=== PATIENT | female | born 1950 | race Caucasian/White ===

== ENCOUNTER 2025-03-24 13:01 | Inpatient (IN) | payer MEDICARE, OTHER ==
[~2025-03-24] VITALS: Ht 154.9 cm; Wt 53.3 kg
[2025-03-24] MEDS: IV NORMAL SALINE 1000 ML BAG IV ONE (13:15)
[2025-03-24 13:35] LABS: BASOPHILS % (AUTO) 0.6 % (0.0-2.0); DIFFERENTIAL COMMENT 1; EOSINOPHILS # (AUTO) 0.1 K/uL (0.0-0.7); EOSINOPHILS % (AUTO) 0.7 % (0.0-7.0); HEMATOCRIT 26.2 % (31.2-41.9); HEMOGLOBIN 8.8 g/dL (10.9-14.3); LYMPHOCYTES # (AUTO) 0.5 K/uL (0.8-4.8); LYMPHOCYTES % (AUTO) 6.7 % (20.5-51.5); MEAN CORPUSCULAR HEMOGLOBIN 32.7 uug (24.7-32.8); MEAN CORPUSCULAR HGB CONC 34 g/dL (32.3-35.6); MEAN CORPUSCULAR VOLUME 97.4 fL (75.5-95.3); MONOCYTES # (AUTO) 0.4 K/uL (0.1-1.30); MONOCYTES % (AUTO) 5.3 % (0.0-11.0); NEUTROPHILS # (AUTO) 7.1 K/uL (1.8-8.9); NEUTROPHILS % (AUTO) 86.7 % (38.5-71.5); PLATELET COUNT (AUTO) 345 K/uL (179-408); RED BLOOD CELL COUNT(AUTO) 2.69 MIL/uL (3.63-4.92); RED CELL DISTRIBUTION WIDTH 13.3 % (12.3-17.7); WHITE BLOOD COUNT (AUTO) 8.2 K/uL (3.8-11.8)
[2025-03-24 13:45] LABS: CALCIUM 10.9 mg/dL (8.5-10.1); CARBON DIOXIDE 30 mmol/L (21-32); CHLORIDE 99 mmol/L (98-107); GLUCOSE 149 mg/dL (74-106); POTASSIUM 3.6 mmol/L (3.5-5.1); SODIUM SERUM 140 mmol/L (136-145)
[2025-03-24 13:47] LABS: UREA NITROGEN, BLOOD 142 mg/dL (7-18)
[2025-03-24] MEDS ORDERED: CARB1TAB21 PO (14:06)
[2025-03-24] MEDS ORDERED: FELO10TA44 PO (14:06)
[2025-03-24] MEDS ORDERED: ATOR80TA PO (14:06)
[2025-03-24] MEDS ORDERED: PARO20TA7 PO (14:06)
[2025-03-24] MEDS ORDERED: BUSP7.5T7 PO (14:06)
[2025-03-24 14:11] LABS: MAGNESIUM 2.9 mg/dL (1.8-2.4); PHOSPHOROUS 4.1 mg/dL (2.5-4.9)
[2025-03-24] MEDS ORDERED: LEVE500T9 PO (14:13)
[2025-03-24] MEDS ORDERED: CALC0.253 PO (14:13)
[2025-03-24] MEDS ORDERED: FERR-68 PO (14:13)
[2025-03-24] MEDS ORDERED: INSU100V7 SQ (14:13)
[2025-03-24] MEDS ORDERED: SODI650T PO (14:13)
[2025-03-24] MEDS ORDERED: HYDR-4077 PO (14:13)
[2025-03-24] MEDS ORDERED: CYAN500T9 PO (14:13)
[2025-03-24] MEDS ORDERED: FURO80TA3 PO (14:13)
[2025-03-24] MEDS ORDERED: REMEDY ESSENTIAL ZINC PASTE 113 GM TP PRN (16:15)
[2025-03-24] MEDS ORDERED: ONDANSETRON 4 MG/2 ML VIAL IV PRN (16:15)
[2025-03-24] MEDS ORDERED: DEXTROSE 50% 50 ML DISP.SYRIN IV PRN (16:45)
[2025-03-24 18:26] LABS: *BILIRUBIN,URIN NEGATIVE (NEGATIVE); *BLOOD, URINE NEGATIVE (NEGATIVE); *CLARITY,URINE CLEAR (CLEAR); *COLOR,URINE YELLOW (YELLOW); *KETONES,URINE NEGATIVE (NEGATIVE); *PROTEIN,URINE 2+ (NEGATIVE); *UROBILINOGEN,URINE 0.2 E.U./dl (NORMAL); LEUKOCYTE ESTERASE ,URINE NEGATIVE (NEGATIVE); NITRITE, URINE NEGATIVE (NEGATIVE); PH,URINE 6.5 (5.0-8.0); UGLUCOSE NEGATIVE (NEGATIVE)
[2025-03-24 18:35] LABS: *CREATININE,URINE 43.6 mg/dL (30-125)
[2025-03-24 18:58] LABS: BACTERIA,URINE FEW /HPF (NONE SEEN); RBC,URINE NONE SEEN /HPF (0-3); SQUAMOUS EPITHELIAL CELL,UR MANY /HPF (NONE SEEN); WBC,URINE 0-3 /HPF (0-3)
[2025-03-24 19:45] VITALS: BP 123/59; TEMP 98; O2SAT 97
[2025-03-24] MEDS: IV NS 1000 ML 1,000 ML IV PRN (19:51)
[2025-03-24] MEDS: levETIRAcetam 500 MG TABLET PO SCH (20:13)
[2025-03-24] MEDS: CARBIDOPA/LEVODOPA 25-100MG TABLET PO SCH (20:13)
[2025-03-24] MEDS: hydrALAZINE HCL 50 MG TABLET PO SCH (20:14)
[2025-03-24] MEDS: HEPARIN SODIUM,PORCINE 5,000 UNITS/ML VIAL SQ SCH (20:21)
[2025-03-24] MEDS: BLOOD SUGAR DIAGNOSTIC 1 EACH STRIP VI SCH (20:39)
[2025-03-24 21:44] VITALS: O2SAT 99
[2025-03-24 23:50] VITALS: BP 117/45; TEMP 98.1; O2SAT 100
[2025-03-25] VITALS (7 sets, daily range): BP systolic 102–127; BP diastolic 39–53; TEMP 98.1–98.7; O2SAT 95–99
[2025-03-25] MEDS: PANTOPRAZOLE SODIUM 40 MG TABLET.DR PO SCH (06:24)
[2025-03-25 06:57] LABS: BASOPHILS % (AUTO) 0.4 % (0.0-2.0); EOSINOPHILS # (AUTO) 0.1 K/uL (0.0-0.7); EOSINOPHILS % (AUTO) 1.2 % (0.0-7.0); HEMATOCRIT 22.3 % (31.2-41.9); HEMOGLOBIN 7.6 g/dL (10.9-14.3); LYMPHOCYTES # (AUTO) 0.7 K/uL (0.8-4.8); LYMPHOCYTES % (AUTO) 8.9 % (20.5-51.5); MEAN CORPUSCULAR HEMOGLOBIN 32.6 uug (24.7-32.8); MEAN CORPUSCULAR HGB CONC 34 g/dL (32.3-35.6); MEAN CORPUSCULAR VOLUME 95.8 fL (75.5-95.3); MONOCYTES # (AUTO) 0.6 K/uL (0.1-1.30); MONOCYTES % (AUTO) 7.2 % (0.0-11.0); NEUTROPHILS # (AUTO) 6.3 K/uL (1.8-8.9); NEUTROPHILS % (AUTO) 82.3 % (38.5-71.5); PLATELET COUNT (AUTO) 308 K/uL (179-408); RED CELL DISTRIBUTION WIDTH 13.2 % (12.3-17.7); WHITE BLOOD COUNT (AUTO) 7.7 K/uL (3.8-11.8)
[2025-03-25 07:13] LABS: DIFFERENTIAL COMMENT 1; RED BLOOD CELL COUNT(AUTO) 2.32 MIL/uL (3.63-4.92)
[2025-03-25 07:21] LABS: ALBUMIN 2.6 g/dL (3.4-5.0); ALKALINE PHOSPHATASE 67 U/L (50-136); ASPARTATE AMINOTRANSFERASE 18 U/L (15-37); BILIRUBIN,TOTAL 0.4 mg/dL (0.2-1.0); CALCIUM 9.7 mg/dL (8.5-10.1); CARBON DIOXIDE 30 mmol/L (21-32); CHLORIDE 105 mmol/L (98-107); CREATINE KINASE, TOTAL 33 U/L (26-192); CREATININE 4.6 mg/dL (0.6-1.3); GLUCOSE 84 mg/dL (74-106); MAGNESIUM 2.8 mg/dL (1.8-2.4); NT-PRO BNP 10150 pg/mL (0-125); PHOSPHOROUS 4.6 mg/dL (2.5-4.9); POTASSIUM 3.6 mmol/L (3.5-5.1); SODIUM SERUM 143 mmol/L (136-145); TOTAL PROTEIN, SERUM 6.2 g/dL (6.4-8.2)
[2025-03-25 07:24] LABS: UREA NITROGEN, BLOOD 129 mg/dL (7-18)
[2025-03-25 08:01] LABS: ALANINE AMINOTRANSFERASE 8 U/L (14-59)
[2025-03-25] MEDS: ATORVASTATIN 40 MG TABLET PO SCH (08:57)
[2025-03-25] MEDS: PAROXETINE HCL 20 MG TABLET PO SCH (08:57)
[2025-03-25] MEDS: CYANOCOBALAMIN 1,000 MCG TABLET PO SCH (08:57)
[2025-03-25] MEDS: busPIRone 5 MG TABLET PO SCH (08:57)
[2025-03-25] MEDS ORDERED: FELODIPINE 10 MG PO SCH (09:00)
[2025-03-25] MEDS: CALCITRIOL 0.25 MCG CAPSULE PO SCH (09:04)
[2025-03-25] MEDS: SODIUM BICARBONATE 650 MG TABLET PO SCH (10:57)
[2025-03-25] MEDS: INSULIN REGULAR, HUMAN 1000 UNIT/10 ML VIAL SQ PRN (11:26)
[2025-03-25] MEDS: FERROUS SULFATE 325 MG TABEC PO SCH (11:28)
[2025-03-25] MEDS: FELODIPINE 2.5 MG TAB.SR.24H PO SCH (11:35)
[2025-03-25] MEDS ORDERED: ATORVASTATIN 40 MG TABLET PO SCH (16:44)
[2025-03-25] MEDS: CARBIDOPA/LEVODOPA 25-100MG TABLET PO SCH (17:31)
[2025-03-26] VITALS (13 sets, daily range): BP systolic 94–146; BP diastolic 40–89; TEMP 97.8–98.8; O2SAT 90–98
[2025-03-26] MEDS: ACETAMINOPHEN 325 MG TABLET PO PRN (04:11)
[2025-03-26 07:07] LABS: BASOPHILS % (AUTO) 0.2 % (0.0-2.0); EOSINOPHILS % (AUTO) 0.2 % (0.0-7.0); HEMATOCRIT 20.9 % (31.2-41.9); HEMOGLOBIN 7.3 g/dL (10.9-14.3); LYMPHOCYTES # (AUTO) 0.4 K/uL (0.8-4.8); LYMPHOCYTES % (AUTO) 3.8 % (20.5-51.5); MEAN CORPUSCULAR HEMOGLOBIN 33.2 uug (24.7-32.8); MEAN CORPUSCULAR HGB CONC 35 g/dL (32.3-35.6); MEAN CORPUSCULAR VOLUME 95.6 fL (75.5-95.3); MONOCYTES # (AUTO) 0.4 K/uL (0.1-1.30); MONOCYTES % (AUTO) 3.8 % (0.0-11.0); NEUTROPHILS # (AUTO) 9.7 K/uL (1.8-8.9); PLATELET COUNT (AUTO) 293 K/uL (179-408); RED BLOOD CELL COUNT(AUTO) 2.19 MIL/uL (3.63-4.92); WHITE BLOOD COUNT (AUTO) 10.5 K/uL (3.8-11.8)
[2025-03-26 07:13] LABS: CALCIUM 9.1 mg/dL (8.5-10.1); CARBON DIOXIDE 28 mmol/L (21-32); CHLORIDE 103 mmol/L (98-107); CREATININE 4.5 mg/dL (0.6-1.3); GLUCOSE 168 mg/dL (74-106); NT-PRO BNP 13182 pg/mL (0-125); POTASSIUM 3.3 mmol/L (3.5-5.1); SODIUM SERUM 141 mmol/L (136-145)
[2025-03-26 07:15] LABS: UREA NITROGEN, BLOOD 113 mg/dL (7-18)
[2025-03-26] MEDS ORDERED: POTASSIUM CHLORIDE 20 MEQ TAB.PRT.SR PO ONE (09:30)
[2025-03-26] MEDS: POTASSIUM CHLORIDE 20 MEQ TAB.PRT.SR PO ONE (09:43)
[2025-03-26 11:07] LABS: PTH, INTACT 270 pg/mL (15-65)
[2025-03-26] MEDS: ATORVASTATIN 40 MG TABLET PO SCH (21:30)
[2025-03-27] VITALS (7 sets, daily range): BP systolic 114–139; BP diastolic 47–60; TEMP 97.7–98.8; O2SAT 93–96
[2025-03-27] MEDS ORDERED: AMIODARONE HCL IV 450 MG in IV DEXTROSE 5% 250 ML IV PRN (06:15)
[2025-03-27] MEDS ORDERED: AMIODARONE HCL IV 150 MG in IV DEXTROSE 5% 100 ML IV ONE (06:15)
[2025-03-27 06:48] LABS: BASOPHILS % (AUTO) 0.4 % (0.0-2.0); EOSINOPHILS # (AUTO) 0.1 K/uL (0.0-0.7); EOSINOPHILS % (AUTO) 1.3 % (0.0-7.0); HEMATOCRIT 28.4 % (31.2-41.9); HEMOGLOBIN 9.7 g/dL (10.9-14.3); LYMPHOCYTES # (AUTO) 0.6 K/uL (0.8-4.8); MEAN CORPUSCULAR HEMOGLOBIN 31.6 uug (24.7-32.8); MEAN CORPUSCULAR HGB CONC 34 g/dL (32.3-35.6); MEAN CORPUSCULAR VOLUME 92.7 fL (75.5-95.3); MONOCYTES # (AUTO) 0.7 K/uL (0.1-1.30); MONOCYTES % (AUTO) 6.4 % (0.0-11.0); NEUTROPHILS # (AUTO) 9.2 K/uL (1.8-8.9); NEUTROPHILS % (AUTO) 85.9 % (38.5-71.5); PLATELET COUNT (AUTO) 301 K/uL (179-408); RED BLOOD CELL COUNT(AUTO) 3.07 MIL/uL (3.63-4.92); RED CELL DISTRIBUTION WIDTH 16.4 % (12.3-17.7); WHITE BLOOD COUNT (AUTO) 10.7 K/uL (3.8-11.8)
[2025-03-27 07:00] LABS: CALCIUM 10.1 mg/dL (8.5-10.1); CARBON DIOXIDE 25 mmol/L (21-32); CHLORIDE 107 mmol/L (98-107); CREATININE 4.5 mg/dL (0.6-1.3); GLUCOSE 102 mg/dL (74-106); SODIUM SERUM 145 mmol/L (136-145)
[2025-03-27] MEDS: AMIODARONE HCL IV 150 MG in IV DEXTROSE 5% 100 ML IV ONE (07:07)
[2025-03-27] MEDS: AMIODARONE HCL IV 450 MG in IV DEXTROSE 5% 250 ML IV PRN (07:17)
[2025-03-27 07:20] LABS: DIFFERENTIAL COMMENT 1
[2025-03-27 07:26] LABS: UREA NITROGEN, BLOOD 102 mg/dL (7-18)
[2025-03-27] MEDS: CALCITRIOL 0.25 MCG CAPSULE PO SCH (09:45)
[2025-03-28 02:31] VITALS: BP 122/44; TEMP 98.9; O2SAT 94
[2025-03-28 07:26] VITALS: BP 163/64; TEMP 97.9; O2SAT 96
[2025-03-28 07:40] VITALS: BP 154/55; TEMP 99.1; O2SAT 96
[2025-03-28] MEDS: PROTEIN SUPPLEMENT (PROSTAT) 30 ML LIQUID PO SCH (09:00)
[2025-03-28] MEDS: AMIODARONE HCL 200 MG TABLET PO SCH (09:35)
[2025-03-28] MEDS ORDERED: EPOETIN ALFA 10,000 UNITS/ML VIAL SQ SCH ×2 (10:30→13:15)
[2025-03-28 10:55] VITALS: BP 160/64; TEMP 98.5; O2SAT 95
[2025-03-28] MEDS: CEFTRIAXONE 1 G in IV DEXTROSE 5% 50 ML IV SCH (14:23)
[2025-03-28] MEDS: EPOETIN ALFA-EPBX 10,000 UNIT/ML VIAL SQ SCH (14:24)
[2025-03-28 15:10] VITALS: BP 130/55; TEMP 98.8; O2SAT 94
[2025-03-28 20:00] VITALS: BP 129/44; TEMP 98.3; O2SAT 98
[2025-03-28] MEDS: DOXYCYCLINE HYCLATE IV 100 MG in IV DEXTROSE 5% 100 ML IV SCH (20:16)
[2025-03-28 22:35] LABS: *OCCULT BLOOD STOOL NEGATIVE (NEGATIVE)
[2025-03-29] VITALS (8 sets, daily range): BP systolic 128–155; BP diastolic 56–66; TEMP 97.6–98.9; O2SAT 92–97
[2025-03-29 07:01] LABS: BASOPHILS % (AUTO) 0.6 % (0.0-2.0); EOSINOPHILS # (AUTO) 0.2 K/uL (0.0-0.7); EOSINOPHILS % (AUTO) 1.8 % (0.0-7.0); HEMATOCRIT 26.2 % (31.2-41.9); LYMPHOCYTES # (AUTO) 0.5 K/uL (0.8-4.8); LYMPHOCYTES % (AUTO) 5.6 % (20.5-51.5); MEAN CORPUSCULAR HEMOGLOBIN 31.9 uug (24.7-32.8); MEAN CORPUSCULAR HGB CONC 34 g/dL (32.3-35.6); MEAN CORPUSCULAR VOLUME 93.1 fL (75.5-95.3); MONOCYTES # (AUTO) 0.5 K/uL (0.1-1.30); MONOCYTES % (AUTO) 6.4 % (0.0-11.0); NEUTROPHILS # (AUTO) 7.3 K/uL (1.8-8.9); NEUTROPHILS % (AUTO) 85.6 % (38.5-71.5); PLATELET COUNT (AUTO) 304 K/uL (179-408); RED BLOOD CELL COUNT(AUTO) 2.82 MIL/uL (3.63-4.92); RED CELL DISTRIBUTION WIDTH 16.1 % (12.3-17.7); WHITE BLOOD COUNT (AUTO) 8.5 K/uL (3.8-11.8)
[2025-03-29 07:24] LABS: DIFFERENTIAL COMMENT 1
[2025-03-29 07:31] LABS: CALCIUM 9.6 mg/dL (8.5-10.1); CARBON DIOXIDE 28 mmol/L (21-32); CHLORIDE 106 mmol/L (98-107); CREATININE 4.4 mg/dL (0.6-1.3); GLUCOSE 119 mg/dL (74-106); POTASSIUM 4.1 mmol/L (3.5-5.1); SODIUM SERUM 143 mmol/L (136-145)
[2025-03-29 07:39] LABS: UREA NITROGEN, BLOOD 87 mg/dL (7-18)
[2025-03-30 00:23] VITALS: BP 132/55; TEMP 98.1
[2025-03-30 06:00] VITALS: BP 146/68; TEMP 98.2
[2025-03-30 07:30] LABS: BASOPHILS # (AUTO) 0.1 K/UL (0.0-0.2); BASOPHILS % (AUTO) 0.7 % (0.0-2.0); EOSINOPHILS # (AUTO) 0.1 K/uL (0.0-0.7); EOSINOPHILS % (AUTO) 1.8 % (0.0-7.0); HEMATOCRIT 29.1 % (31.2-41.9); HEMOGLOBIN 9.7 g/dL (10.9-14.3); LYMPHOCYTES # (AUTO) 0.6 K/uL (0.8-4.8); LYMPHOCYTES % (AUTO) 8.5 % (20.5-51.5); MEAN CORPUSCULAR HEMOGLOBIN 31.2 uug (24.7-32.8); MEAN CORPUSCULAR HGB CONC 33 g/dL (32.3-35.6); MEAN CORPUSCULAR VOLUME 93.4 fL (75.5-95.3); MONOCYTES # (AUTO) 0.4 K/uL (0.1-1.30); MONOCYTES % (AUTO) 5.6 % (0.0-11.0); NEUTROPHILS # (AUTO) 6.1 K/uL (1.8-8.9); NEUTROPHILS % (AUTO) 83.4 % (38.5-71.5); PLATELET COUNT (AUTO) 354 K/uL (179-408); RED BLOOD CELL COUNT(AUTO) 3.12 MIL/uL (3.63-4.92); RED CELL DISTRIBUTION WIDTH 16.4 % (12.3-17.7); WHITE BLOOD COUNT (AUTO) 7.4 K/uL (3.8-11.8)
[2025-03-30 07:42] LABS: DIFFERENTIAL COMMENT 1
[2025-03-30 07:44] LABS: CALCIUM 10.1 mg/dL (8.5-10.1); CARBON DIOXIDE 28 mmol/L (21-32); CHLORIDE 107 mmol/L (98-107); CREATININE 4.5 mg/dL (0.6-1.3); GLUCOSE 111 mg/dL (74-106); POTASSIUM 4.2 mmol/L (3.5-5.1); SODIUM SERUM 146 mmol/L (136-145)
[2025-03-30 07:49] LABS: UREA NITROGEN, BLOOD 81 mg/dL (7-18)
[2025-03-30 07:58] VITALS: BP 163/65; TEMP 97; O2SAT 96
[2025-03-30 09:07] LABS: ALBUMIN 2.7 g/dL (2.9-4.4); ALPHA-1-GLOBULIN 0.3 g/dL (0.0-0.4); ALPHA-2-GLOBULIN 0.8 g/dL (0.4-1.0); BETA GLOBULIN 0.9 g/dL (0.7-1.3); GAMMA GLOBULIN 0.7 g/dL (0.4-1.8); GLOBULIN, TOTAL 2.7 g/dL (2.2-3.9); M-SPIKE Not Observed g/dL (Not Observed); PROTEIN, TOTAL 5.4 g/dL (6.0-8.5)
[2025-03-30 11:50] VITALS: BP 134/51; TEMP 98.2; O2SAT 98
[2025-03-30] MEDS: ACIDOPHILUS/BULGARICUS CHEW TAB PO SCH (11:59)
[2025-03-30] MEDS ORDERED: DOXY-326 PO (13:13)
[2025-03-30] MEDS ORDERED: ACID1TAB4 PO (13:13)
[2025-03-30] MEDS ORDERED: CARB1TAB21 PO (13:13)
[2025-03-30] MEDS ORDERED: ATOR40TA PO (13:13)
[2025-03-30] MEDS ORDERED: [UNRECOGNIZED DRUG - CODE] PO (13:13)
[2025-03-30] MEDS ORDERED: EPOE1000 SQ (13:13)
[2025-03-30] MEDS ORDERED: AMIO200T6 PO (13:13)
[2025-03-30 14:15] VITALS: O2SAT 98
[2025-03-30 15:03] VITALS: BP 130/58; TEMP 97.6; O2SAT 96
== END 2025-03-30 16:00 | disposition home health service (06) | DRG 682 ==
LOC: ER 13:01 → TELE3 18:09 → TELE-TD3 03-27 06:35 → TELE3 03-28 11:00 → MEDSURG3 03-30 08:42
PROVIDERS: ADMIT Nurse Practitioner Family; ATTEND Nurse Practitioner Family
PROC: 30233N1 Transfusion of Nonautologous Red Blood Cells into Peripheral Vein, Percutaneous Approach (ICD-10-PCS; principal; 2025-03-26)
DX: N17.9 Acute kidney failure, unspecified (principal); G92.8 Other toxic encephalopathy; I21.A1 Myocardial infarction type 2; J15.69 Pneumonia due to other Gram-negative bacteria; E44.0 Moderate protein-calorie malnutrition; F02.83 Dementia in other diseases classified elsewhere, unspecified severity, with mood disturbance; F02.84 Dementia in other diseases classified elsewhere, unspecified severity, with anxiety; I48.91 Unspecified atrial fibrillation; E88.09 Other disorders of plasma-protein metabolism, not elsewhere classified; G40.909 Epilepsy, unspecified, not intractable, without status epilepticus; E11.22 Type 2 diabetes mellitus with diabetic chronic kidney disease; Z88.8 Allergy status to other drugs, medicaments and biological substances; Z91.011 Allergy to milk products; G93.89 Other specified disorders of brain; Z79.899 Other long term (current) drug therapy; Z79.4 Long term (current) use of insulin; Z86.73 Personal history of transient ischemic attack (TIA), and cerebral infarction without residual deficits; R32 Unspecified urinary incontinence; N18.9 Chronic kidney disease, unspecified; I13.10 Hypertensive heart and chronic kidney disease without heart failure, with stage 1 through stage 4 chronic kidney disease, or unspecified chronic kidney disease; G20.A1 Parkinson's disease without dyskinesia, without mention of fluctuations; F32.A Depression, unspecified; E83.52 Hypercalcemia; E87.6 Hypokalemia; E78.5 Hyperlipidemia, unspecified; E87.70 Fluid overload, unspecified; D63.1 Anemia in chronic kidney disease
CPT/HCPCS: 36415; 70450; 71045; 76770; 83605; 83735; 83970; 84100; 84155; 84165; 84300; 84484; 85025; 85610; 86850; 86900; 86901; 86920; 87040; 87086; 93005; 93307; 94760; A4606; A4663; A6213; A9150; G0378; J0282; J0696; J0885; J1644; J1815; J3490; J7040; J7050; P9016